=== PATIENT | male | born 1955 | race Two or more races ===

== ENCOUNTER 2017-08-25 09:18 | Inpatient (IN) | payer MEDICAID, OTHER ==
[~2017-08-25] VITALS: Ht 162.6 cm; Wt 93.1 kg
[2017-08-25] MEDS ORDERED: CLINDAMYCIN 900MG IV 50 ML IV ONE (10:30)
[2017-08-25] MEDS ORDERED: cefTRIAXone 1GM/10ml IVPUSH 10 ML IV ONE (10:30)
[2017-08-25] MEDS ORDERED: SODIUM CHLORIDE 0.9% 2,000 ML IV ONE (10:30)
[2017-08-25 11:01] LABS: Basophils # (auto) 0.1 uL; Basophils % (auto) 0.4 % (0.0-2.0); Eosinophils # (auto) 0 uL; Hematocrit 41.4 % (41.0-53.0); Lymphocytes # (auto) 0.8 uL; Lymphocytes % (auto) 3.9 % (10.0-50.0); Mean Corpuscular Hemoglobin 28.9 pg (28.0-32.0); Mean Corpuscular Hgb Conc. 33.7 g/dL (32.0-36.0); Mean Corpuscular Volume 85.8 fL (80.0-100.0); Monocytes # (auto) 1.7 uL; Monocytes % (auto) 7.8 % (0.0-12.0); Neutrophils # (auto) 18.9 uL; Neutrophils % (auto) 87.9 % (37.0-80.0); Platelet Count (auto) 431 10^3/uL (140-450); Red Blood Cells 4.83 10^6/uL (4.5-5.90); Red Cell Distribution Width 13.1 % (11.8-14.3); White Blood Cell 21.6 10^3/uL (4.4-10.8)
[2017-08-25 11:04] LABS: Urine Bacteria NONE SEEN /hpf (None Seen); Urine Blood Negative /uL (Negative); Urine Specific Gravity 1.044 (1.001-1.035); Urine WBC <1 /hpf (0 - 3)
[2017-08-25 11:08] LABS: Albumin 2.6 g/dL (3.4-5.0); BUN/Creatinine Ratio 13.4; Bilirubin, Total 0.6 mg/dL (0.2-1.0); Calcium 8.4 mg/dL (8.5-10.1); Potassium 3.7 mmol/L (3.5-5.1); Total Protein 7.2 g/dL (6.4-8.2)
[2017-08-25] MEDS ORDERED: InsuLIN REG 1unit/0.01ml Soln (100units/ml) IV ONE ×2 (12:15)
[2017-08-25] MEDS ORDERED: POTASSIUM CHL 20 Meq TABLET PO ONE (12:15)
[2017-08-25] MEDS ORDERED: SODIUM CHLORIDE 0.9% 1,000 ML IV ONE (12:30)
[2017-08-25] MEDS ORDERED: VANCOMYCIN 1GM/250ML 250 ML IV ONE (12:45)
[2017-08-25] MEDS ORDERED: IOHEXOL 300 MG/ML 100ML BOTTLE IJ ONE (12:46)
[2017-08-25] MEDS ORDERED: LACTULOSE 20Gm/30ML SOLN PO PRN (14:00)
[2017-08-25] MEDS ORDERED: NITROGLYCERIN 0.4 MG SL TAB SL PRN (14:00)
[2017-08-25] MEDS ORDERED: MORPHINE SULF INJ 2 MG/ML SYRINGE 1ML IV PRN (14:00)
[2017-08-25] MEDS ORDERED: PROMETHAZINE HCL 25 MG/ML 1ML IV PRN (14:00)
[2017-08-25] MEDS ORDERED: TEMAZEPAM 15 MG CAP PO PRN (14:00)
[2017-08-25] MEDS ORDERED: PIPERACILLIN-TAZOB 3.375GM 50 ML IV ONE (14:00)
[2017-08-25] MEDS ORDERED: VANCOMYCIN PER PHARMACY 0 MG IV SCH (14:00)
[2017-08-25] MEDS ORDERED: DEXTROSE (50%) 50ML SYRG IV PRN (14:00)
[2017-08-25] MEDS ORDERED: INSULIN DETEMIR(LEVEMIR) 1unit/0.01ml Soln (100units/ml) SC ONE (14:00)
[2017-08-25] MEDS: ACETAMINOPHEN 500 MG TAB PO PRN ×2 (14:42→21:21)
[2017-08-25] MEDS: SODIUM CHLORIDE 0.9% 1,000 ML IV SCH ×2 (15:01→23:56)
[2017-08-25] MEDS: ACCU-CHEK COMFORT CURVE STRIP VI SCH ×3 (15:01→23:56)
[2017-08-25] MEDS: InsuLIN REG 1unit/0.01ml Soln (100units/ml) SC SCH ×3 (15:19→23:56)
[2017-08-25] MEDS ORDERED: ACETAMINOPHEN 500 MG TAB PO ONE (16:00)
[2017-08-25] MEDS: PIPERACILLIN-TAZOB 3.375GM 50 ML IV SCH ×2 (18:17→23:56)
[2017-08-25] MEDS: MORPHINE SULF INJ 2 MG/ML SYRINGE 1ML IV PRN ×2 (18:55→23:55)
[2017-08-25 19:45] VITALS: BP 136/74
[2017-08-25] MEDS ORDERED: IBUPROFEN 600 MG TAB PO ONE (22:45)
[2017-08-25] MEDS ORDERED: METOPROLOL TARTRATE 1MG/1ML-5ML VIAL IV ONE (22:45)
[2017-08-25] MEDS: INSULIN DETEMIR(LEVEMIR) 1unit/0.01ml Soln (100units/ml) SC SCH (23:55)
[2017-08-26] MEDS: VANCOMYCIN 1GM/250ML 250 ML IV SCH ×2 (01:51→14:20)
[2017-08-26] MEDS: InsuLIN REG 1unit/0.01ml Soln (100units/ml) SC SCH ×5 (04:33→20:38)
[2017-08-26] MEDS: ACCU-CHEK COMFORT CURVE STRIP VI SCH ×5 (04:33→20:38)
[2017-08-26 05:00] VITALS: BP 101/55
[2017-08-26] MEDS: PIPERACILLIN-TAZOB 3.375GM 50 ML IV SCH ×3 (05:06→18:00)
[2017-08-26 06:27] LABS: Basophils # (auto) 0 uL; Basophils % (auto) 0.2 % (0.0-2.0); Eosinophils # (auto) 0.1 uL; Eosinophils % (auto) 0.6 % (0.0-7.0); Hemoglobin 12.6 g/dL (13.5-17.5); Lymphocytes # (auto) 0.7 uL; Lymphocytes % (auto) 4.2 % (10.0-50.0); Mean Corpuscular Hemoglobin 28.5 pg (28.0-32.0); Mean Corpuscular Hgb Conc. 33.1 g/dL (32.0-36.0); Mean Corpuscular Volume 86.1 fL (80.0-100.0); Monocytes # (auto) 1.6 uL; Monocytes % (auto) 9.9 % (0.0-12.0); Neutrophils # (auto) 13.3 uL; Neutrophils % (auto) 85.1 % (37.0-80.0); Platelet Count (auto) 378 10^3/uL (140-450); Red Blood Cells 4.41 10^6/uL (4.5-5.90); Red Cell Distribution Width 13.1 % (11.8-14.3); White Blood Cell 15.7 10^3/uL (4.4-10.8)
[2017-08-26 06:45] LABS: BUN/Creatinine Ratio 13.8; Calcium 7.9 mg/dL (8.5-10.1)
[2017-08-26 06:48] LABS: Bilirubin, Total 0.4 mg/dL (0.2-1.0)
[2017-08-26] MEDS: HYDROcodone-ACET 5/325MG TAB PO PRN ×2 (08:25→14:07)
[2017-08-26 09:00] VITALS: BP 120/67
[2017-08-26] MEDS: INSULIN DETEMIR(LEVEMIR) 1unit/0.01ml Soln (100units/ml) SC SCH ×2 (09:14→21:09)
[2017-08-26] MEDS: ENOXAPARIN SOD 40 MG/0.4 ML SYRINGE SC SCH (09:14)
[2017-08-26] MEDS: SODIUM CHLORIDE 0.9% 1,000 ML IV SCH ×2 (10:31→20:37)
[2017-08-26] MEDS: LORazepam 0.5 MG TAB PO PRN (10:32)
[2017-08-26] MEDS: MORPHINE SULF INJ 2 MG/ML SYRINGE 1ML IV PRN ×3 (12:07→20:39)
[2017-08-26 13:00] VITALS: BP 140/80
[2017-08-26 16:40] VITALS: BP 134/74
[2017-08-26] MEDS: ACETAMINOPHEN 500 MG TAB PO PRN (21:10)
[2017-08-26] MEDS ORDERED: GLIP-116 PO (21:59)
[2017-08-26 22:00] VITALS: BP 109/45
[2017-08-26] MEDS ORDERED: BENA20TA14 PO (22:00)
[2017-08-26] MEDS ORDERED: METF-370 PO (22:00)
[2017-08-27] MEDS: InsuLIN REG 1unit/0.01ml Soln (100units/ml) SC SCH ×6 (00:27→20:42)
[2017-08-27] MEDS: ACCU-CHEK COMFORT CURVE STRIP VI SCH ×6 (00:27→20:42)
[2017-08-27] MEDS: PIPERACILLIN-TAZOB 3.375GM 50 ML IV SCH ×4 (00:27→18:00)
[2017-08-27] MEDS: VANCOMYCIN 1GM/250ML 250 ML IV SCH (02:19)
[2017-08-27] MEDS: HYDROcodone-ACET 5/325MG TAB PO PRN ×4 (04:22→20:49)
[2017-08-27 05:00] VITALS: BP 130/71
[2017-08-27] MEDS: SODIUM CHLORIDE 0.9% 1,000 ML IV SCH ×2 (05:55→15:48)
[2017-08-27 08:40] VITALS: BP 122/68
[2017-08-27] MEDS: ENOXAPARIN SOD 40 MG/0.4 ML SYRINGE SC SCH (09:20)
[2017-08-27] MEDS: LORazepam 0.5 MG TAB PO PRN ×2 (09:20→16:32)
[2017-08-27] MEDS: INSULIN DETEMIR(LEVEMIR) 1unit/0.01ml Soln (100units/ml) SC SCH ×2 (09:22→22:03)
[2017-08-27] MEDS ORDERED: VANCOMYCIN 1GM/250ML 250 ML IV SCH (10:00)
[2017-08-27] MEDS: VANCOMYCIN 1,500 MG in D5W 5% 250 ML IV SCH ×2 (10:00→17:47)
[2017-08-27] MEDS: MORPHINE SULF INJ 2 MG/ML SYRINGE 1ML IV PRN (11:27)
[2017-08-27 13:00] VITALS: BP 122/65
[2017-08-27] MEDS ORDERED: MORPHINE SULFATE 10 MG/ML INJ 1ML SDV IV PRN ×2 (17:15)
[2017-08-27 17:18] VITALS: BP 110/49
[2017-08-27 21:35] VITALS: BP 155/61
[2017-08-27] MEDS: HYDROmorphone HCL 2 MG/ML VL IV PRN (22:02)
[2017-08-28] MEDS: ACCU-CHEK COMFORT CURVE STRIP VI SCH ×6 (00:16→20:22)
[2017-08-28] MEDS: InsuLIN REG 1unit/0.01ml Soln (100units/ml) SC SCH ×6 (00:16→20:22)
[2017-08-28] MEDS: PIPERACILLIN-TAZOB 3.375GM 50 ML IV SCH ×4 (00:16→18:00)
[2017-08-28] MEDS: VANCOMYCIN 1,500 MG in D5W 5% 250 ML IV SCH ×2 (01:55→09:15)
[2017-08-28] MEDS: SODIUM CHLORIDE 0.9% 1,000 ML IV SCH ×3 (01:57→22:30)
[2017-08-28] MEDS: HYDROmorphone HCL 2 MG/ML VL IV PRN ×3 (04:28→16:59)
[2017-08-28 05:00] VITALS: BP 133/69
[2017-08-28 05:04] LABS: Basophils # (auto) 0 uL; Basophils % (auto) 0.2 % (0.0-2.0); Eosinophils # (auto) 0.1 uL; Eosinophils % (auto) 0.7 % (0.0-7.0); Hematocrit 35.9 % (41.0-53.0); Hemoglobin 12.2 g/dL (13.5-17.5); Lymphocytes # (auto) 0.7 uL; Mean Corpuscular Hemoglobin 28.7 pg (28.0-32.0); Mean Corpuscular Hgb Conc. 33.9 g/dL (32.0-36.0); Mean Corpuscular Volume 84.8 fL (80.0-100.0); Monocytes # (auto) 2.1 uL; Monocytes % (auto) 12.3 % (0.0-12.0); Neutrophils # (auto) 13.7 uL; Neutrophils % (auto) 82.8 % (37.0-80.0); Platelet Count (auto) 414 10^3/uL (140-450); Red Blood Cells 4.24 10^6/uL (4.5-5.90); Red Cell Distribution Width 13.3 % (11.8-14.3); White Blood Cell 16.6 10^3/uL (4.4-10.8)
[2017-08-28 05:31] LABS: Calcium 7.9 mg/dL (8.5-10.1)
[2017-08-28 05:33] LABS: BUN/Creatinine Ratio 4.3
[2017-08-28 05:36] LABS: Potassium 2.8 mmol/L (3.5-5.1)
[2017-08-28] MEDS ORDERED: POTASSIUM CHL 20 Meq TABLET PO ONE (06:00)
[2017-08-28] MEDS: HYDROcodone-ACET 5/325MG TAB PO PRN ×2 (06:27→19:33)
[2017-08-28 08:00] VITALS: BP 136/58
[2017-08-28 08:49] VITALS: BP 136/58
[2017-08-28] MEDS: ENOXAPARIN SOD 40 MG/0.4 ML SYRINGE SC SCH (09:15)
[2017-08-28] MEDS: INSULIN DETEMIR(LEVEMIR) 1unit/0.01ml Soln (100units/ml) SC SCH ×2 (09:15→22:30)
[2017-08-28 13:00] VITALS: BP 108/72
[2017-08-28 17:00] VITALS: BP 116/74
[2017-08-28] MEDS: ceFAZolin 1GM/50ML 50 ML IV SCH (18:00)
[2017-08-28 21:45] VITALS: BP 129/67
[2017-08-28] MEDS ORDERED: VANCOMYCIN 1,500 MG in D5W 5% 250 ML IV SCH (22:00)
[2017-08-29] VITALS (7 sets, daily range): BP systolic 105–150; BP diastolic 55–82
[2017-08-29] MEDS: PIPERACILLIN-TAZOB 3.375GM 50 ML IV SCH ×3 (00:41→11:45)
[2017-08-29] MEDS: InsuLIN REG 1unit/0.01ml Soln (100units/ml) SC SCH ×6 (00:41→21:20)
[2017-08-29] MEDS: SODIUM CHLORIDE 0.9% 1,000 ML IV SCH (00:42)
[2017-08-29] MEDS: ACCU-CHEK COMFORT CURVE STRIP VI SCH ×6 (00:42→21:21)
[2017-08-29] MEDS: ceFAZolin 1GM/50ML 50 ML IV SCH ×4 (00:42→18:08)
[2017-08-29] MEDS: HYDROcodone-ACET 5/325MG TAB PO PRN ×4 (01:25→19:05)
[2017-08-29 05:34] LABS: Hemoglobin 11.8 g/dL (13.5-17.5); Mean Corpuscular Hemoglobin 28.2 pg (28.0-32.0); Mean Corpuscular Hgb Conc. 32.8 g/dL (32.0-36.0); Platelet Count (auto) 464 10^3/uL (140-450); Red Blood Cells 4.19 10^6/uL (4.5-5.90); Red Cell Distribution Width 12.9 % (11.8-14.3); White Blood Cell 14.9 10^3/uL (4.4-10.8)
[2017-08-29 05:48] LABS: Basophils % (manual) 0 (0.0-2.0); Blast Cells 0; Metamyelocytes % 0; Myelocytes % 0; Promyelocytes % 0; Reactive Lymphocytes 0
[2017-08-29 05:53] LABS: BUN/Creatinine Ratio 4.4; Calcium 7.9 mg/dL (8.5-10.1); Potassium 3.3 mmol/L (3.5-5.1)
[2017-08-29 06:11] LABS: Band Neutrophils % (manual) 4; Eosinophils % (manual) 2 (0-7); Lymphocytes % (manual) 9 (10.0-50.0); Monocytes % (manual) 5 (0-12)
[2017-08-29] MEDS: ENOXAPARIN SOD 40 MG/0.4 ML SYRINGE SC SCH (09:26)
[2017-08-29] MEDS: INSULIN DETEMIR(LEVEMIR) 1unit/0.01ml Soln (100units/ml) SC SCH ×2 (09:27→21:21)
[2017-08-29] MEDS ORDERED: POTASSIUM CHL 20 Meq TABLET PO ONE (13:15)
[2017-08-29] MEDS: PRO-STAT 64 30ML PO SCH (20:09)
[2017-08-29] MEDS: ASCORBIC ACID 500 MG TAB PO SCH (21:21)
[2017-08-30] MEDS: ACCU-CHEK COMFORT CURVE STRIP VI SCH ×6 (01:08→19:34)
[2017-08-30] MEDS: ceFAZolin 1GM/50ML 50 ML IV SCH ×4 (01:08→16:50)
[2017-08-30] MEDS: SODIUM CHLORIDE 0.9% 1,000 ML IV SCH (01:08)
[2017-08-30] MEDS: InsuLIN REG 1unit/0.01ml Soln (100units/ml) SC SCH ×6 (04:29→19:38)
[2017-08-30 05:00] VITALS: BP 149/63
[2017-08-30] MEDS: PRO-STAT 64 30ML PO SCH ×2 (08:00→19:38)
[2017-08-30 09:00] VITALS: BP 132/64
[2017-08-30] MEDS: ASCORBIC ACID 500 MG TAB PO SCH ×2 (11:12→21:39)
[2017-08-30] MEDS: MULTIPLE VITAMIN TAB PO SCH (11:12)
[2017-08-30] MEDS: ENOXAPARIN SOD 40 MG/0.4 ML SYRINGE SC SCH (11:12)
[2017-08-30] MEDS: INSULIN DETEMIR(LEVEMIR) 1unit/0.01ml Soln (100units/ml) SC SCH ×2 (11:13→21:39)
[2017-08-30 13:00] VITALS: BP 132/66
[2017-08-30 17:40] VITALS: BP 137/73
[2017-08-30 22:00] VITALS: BP 141/74
[2017-08-31] MEDS: HYDROcodone-ACET 5/325MG TAB PO PRN ×2 (00:01→21:57)
[2017-08-31] MEDS: ACCU-CHEK COMFORT CURVE STRIP VI SCH ×6 (00:01→21:58)
[2017-08-31] MEDS: SODIUM CHLORIDE 0.9% 1,000 ML IV SCH (00:01)
[2017-08-31] MEDS: InsuLIN REG 1unit/0.01ml Soln (100units/ml) SC SCH ×5 (00:02→16:57)
[2017-08-31] MEDS: ceFAZolin 1GM/50ML 50 ML IV SCH ×4 (00:04→19:47)
[2017-08-31 05:00] VITALS: BP 135/56
[2017-08-31 05:37] LABS: Basophils # (auto) 0.1 uL; Lymphocytes # (auto) 0.8 uL; Neutrophils % (auto) 81.9 % (37.0-80.0)
[2017-08-31 05:41] LABS: Basophils % (auto) 0.4 % (0.0-2.0); Eosinophils # (auto) 0.2 uL; Eosinophils % (auto) 1.5 % (0.0-7.0); Hematocrit 34.1 % (41.0-53.0); Hemoglobin 11.5 g/dL (13.5-17.5); Lymphocytes % (auto) 6.7 % (10.0-50.0); Mean Corpuscular Hemoglobin 28.8 pg (28.0-32.0); Mean Corpuscular Hgb Conc. 33.6 g/dL (32.0-36.0); Mean Corpuscular Volume 85.8 fL (80.0-100.0); Monocytes # (auto) 1.2 uL; Monocytes % (auto) 9.5 % (0.0-12.0); Platelet Count (auto) 547 10^3/uL (140-450); Red Blood Cells 3.98 10^6/uL (4.5-5.90); Red Cell Distribution Width 13.3 % (11.8-14.3); White Blood Cell 12.2 10^3/uL (4.4-10.8)
[2017-08-31] MEDS: PRO-STAT 64 30ML PO SCH ×2 (08:21→19:38)
[2017-08-31 09:00] VITALS: BP 139/69
[2017-08-31] MEDS: MULTIPLE VITAMIN TAB PO SCH (09:59)
[2017-08-31] MEDS: ASCORBIC ACID 500 MG TAB PO SCH ×2 (09:59→21:58)
[2017-08-31] MEDS: INSULIN DETEMIR(LEVEMIR) 1unit/0.01ml Soln (100units/ml) SC SCH ×2 (09:59→21:58)
[2017-08-31] MEDS: ENOXAPARIN SOD 40 MG/0.4 ML SYRINGE SC SCH (10:00)
[2017-08-31 13:00] VITALS: BP 138/62
[2017-08-31 17:00] VITALS: BP 138/70
[2017-08-31] MEDS ORDERED: DEXTROSE (50%) 50ML SYRG IV PRN (18:00)
[2017-08-31 22:00] VITALS: BP 140/86
[2017-08-31] MEDS ORDERED: InsuLIN REG 1unit/0.01ml Soln (100units/ml) SC SCH (22:00)
[2017-09-01] MEDS: ceFAZolin 1GM/50ML 50 ML IV SCH ×2 (00:02→05:35)
[2017-09-01] MEDS: SODIUM CHLORIDE 0.9% 1,000 ML IV SCH (00:28)
[2017-09-01 05:00] VITALS: BP 138/96
[2017-09-01] MEDS: ACETAMINOPHEN 500 MG TAB PO PRN (05:50)
[2017-09-01] MEDS: ACCU-CHEK COMFORT CURVE STRIP VI SCH (06:40)
[2017-09-01] MEDS ORDERED: InsuLIN REG 1unit/0.01ml Soln (100units/ml) SC SCH (07:00)
[2017-09-01] MEDS: PRO-STAT 64 30ML PO SCH (08:00)
[2017-09-01 09:00] VITALS: BP 135/67
[2017-09-01] MEDS: MULTIPLE VITAMIN TAB PO SCH (10:09)
[2017-09-01] MEDS: ASCORBIC ACID 500 MG TAB PO SCH (10:09)
[2017-09-01] MEDS: ENOXAPARIN SOD 40 MG/0.4 ML SYRINGE SC SCH (10:09)
[2017-09-01] MEDS: INSULIN DETEMIR(LEVEMIR) 1unit/0.01ml Soln (100units/ml) SC SCH (10:21)
[2017-09-01 13:00] VITALS: BP 136/66
== END 2017-09-01 15:10 | disposition home or self-care (01) | DRG 871 ==
LOC: ER 09:18 → TELE 09:19 → TELE-WESTW 18:38
PROVIDERS: ADMIT Internal Medicine; ATTEND Internal Medicine Pulmonary Disease
DX: A41.01 Sepsis due to Methicillin susceptible Staphylococcus aureus (principal); E43 Unspecified severe protein-calorie malnutrition; L02.31 Cutaneous abscess of buttock; L03.317 Cellulitis of buttock; E87.1 Hypo-osmolality and hyponatremia; M00.852 Arthritis due to other bacteria, left hip; E87.6 Hypokalemia; L40.9 Psoriasis, unspecified; E11.65 Type 2 diabetes mellitus with hyperglycemia; Z68.35 Body mass index [BMI] 35.0-35.9, adult; Z82.0 Family history of epilepsy and other diseases of the nervous system; Z83.3 Family history of diabetes mellitus; Z79.899 Other long term (current) drug therapy
CPT/HCPCS: 36415; 73701; 74176; 80048; 80053; 80202; 81001; 82010; 82962; 83036; 83605; 85007; 85025; 85027; 85652; 87040; 87077; 87147; 87186; 93005; 93926; 96361; 96365; 96367; 96372; 96375; J0690; J1815; J2543; J3490; J7060